=== PATIENT | male | born 1950 | race Caucasian/White ===

== ENCOUNTER 2021-08-08 06:33 | Inpatient (IN) ==
[2021-08-08] MEDS: *HR* Heparin 5,000 UNIT/ML VIAL SQ SCH ×2 (06:16→14:30)
[2021-08-08] MEDS: Insulin LISPRO 300 UNITS/3 ML VIAL SUBQ SCH ×3 (06:16→16:59)
[2021-08-08 06:22] LABS: Basophils % 0.2 %; Hematocrit 43.9 % (37.5-50.1); Hemoglobin 13.7 g/dL (12.9-16.9); Immature Granulocytes % 0.4 % (0-4); Lymphocytes # 0.3 K/mcL (0.6-4.6); Lymphocytes % 5.8 %; Mean Corpuscular HGB Conc 31.2 g/dL (31.6-35.5); Mean Corpuscular Hemoglobin 27.6 pg (28.0-33.3); Mean Corpuscular Volume 88.3 fL (83.0-100.0); Mean Platelet Volume 9.3 fL (9.4-12.4); Monocytes # 0.1 K/mcL (0.0-1.3); Monocytes % 1.3 %; Neutrophils # 4.3 K/mcL (1.6-8.9); Platelet Count 228 K/mcL (140-400); Red Blood Count 4.97 M/mcL (4.19-5.50); Red Cell Distribution Width 14.8 % (11.5-14.5); Segmented Neutrophils % 92.3 %; White Blood Count 4.6 K/mcL (4.3-11.1)
[2021-08-08 06:29] LABS: INR 1.9
[~2021-08-08 06:33] MED LIST: *HR* Dextrose 50 % in Water (Syg) 50 ML SYRINGE IVP PRN; *HR* Promethazine 25 MG/ML VIAL IM PRN; Azithromycin 500 MG in 0.9 % Sodium Chloride 250 ML IVPB SCH; D5% in Water 1,000 ML IVC PRN; Dextrose Gel 15 GM/37.5 ML TUBE PO PRN; Ipratropium/Albuterol Neb 3 ML IH PRN; Melatonin 3 MG TABLET PO PRN; Naloxone 0.4 MG/ML INJ IVP PRN; Ondansetron 4 MG/2 ML VIAL IVP PRN
[2021-08-08 06:37] LABS: Lactate Dehydrogenase 131 Units/L (140-271); Total Protein 8.7 g/dL (6.4-8.9)
[2021-08-08 06:39] LABS: BUN/Creatinine Ratio 18 (6-26); Blood Urea Nitrogen 24 mg/dL (8-23); Calcium 9.6 mg/dL (8.6-10.3); Carbon Dioxide 30 mEq/L (23-29); Chloride 98 mEq/L (98-107); Glucose 146 mg/dL (70-105); Osmolality,Calculated 289 (280-300); Potassium 4.4 mEq/L (3.5-5.1); Sodium 136 mEq/L (136-145); eGFR For African Americans > 60 (> 60); eGFR For Non-African Americans 52 (> 60)
[2021-08-08] MEDS ORDERED: Perflutren Lipid Microsphere 1.3 ML in 0.9 % Sodium Chloride 8.7 ML IVP PRN (07:23)
[2021-08-08] MEDS: Ipratropium/Albuterol Neb 3 ML IH SCH ×3 (07:46→15:41)
[2021-08-08] MEDS ORDERED: MethylPREDNISolone 40 MG/ML VIAL IVP SCH (08:00)
[2021-08-08] MEDS ORDERED: Furosemide 40 MG/4 ML VIAL IVP SCH (09:00)
[2021-08-08] MEDS ORDERED: Ondansetron 4 MG/2 ML VIAL IVP PRN (12:31)
[2021-08-08] MEDS ORDERED: Nitroglycerin 0.4 MG TAB.SUBL SL PRN (12:31)
[2021-08-08] MEDS ORDERED: *HR* FentaNYL (PF) 100 MCG/2 ML VIAL IVP PRN (12:31)
[2021-08-08] MEDS ORDERED: Albuterol 2.5 MG/3 ML NEBULIZER IH PRN (12:31)
[2021-08-08] MEDS ORDERED: Naloxone 0.4 MG/ML INJ IVP PRN (12:31)
[2021-08-08] MEDS ORDERED: atenoloL 50 MG TABLET PO SCH (12:45)
[2021-08-08] MEDS ORDERED: Gabapentin 300 MG CAPSULE PO SCH (15:00)
[2021-08-08 15:21] LABS: RBC,Pleural Fluid < 2000 RBC/mcL
[2021-08-08 15:25] LABS: Total Protein,Pleural Fluid 5.6 g/dL
[2021-08-08] MEDS ORDERED: Nicotine 21 MG PATCH.TD24 TD SCH (15:30)
[2021-08-08] MEDS ORDERED: Piperacillin/Tazobactam 3.375 GM in 0.9 % Sodium Chloride Mini Bag 100 ML IVPB SCH (16:00)
[2021-08-08 16:14] LABS: Appearance of Pleural Fl Clear (Clear)
[2021-08-08 16:40] VITALS: BP 117/66; PULSE 94; TEMP 98.3; O2SAT 93
[2021-08-08] MEDS ORDERED: *HR* Succinylcholine 200 MG/10 ML VIAL IVP ONE (17:42)
[2021-08-08] MEDS ORDERED: Lidocaine -MPF 4% 5 ML AMPUL TP ONE (17:42)
[2021-08-08] MEDS ORDERED: *HR* Labetalol 20 MG/4 ML SYRINGE IVP ONE (17:42)
[2021-08-08] MEDS ORDERED: *HR* Phenylephrine 10 MG/ML VIAL IVC ONE (17:42)
[2021-08-08] MEDS ORDERED: *HR* Propofol 200 MG/20 ML VIAL IVP ONE (17:42)
[2021-08-08] MEDS ORDERED: Lidocaine -MPF 2% 5 ML VIAL SQ ONE (17:42)
[2021-08-08] MEDS ORDERED: traZODone 50 MG TABLET PO SCH (21:00)
[2021-08-08] MEDS ORDERED: Insulin DETEMIR 100 UNIT/ML X5UNITS SUBQ SCH (21:00)
[2021-08-08] MEDS ORDERED: Budesonide/Formoterol 80/4.5 1 PUFF INH IH SCH (22:00)
[2021-08-08 23:58] LABS: Appearance of Body Fluid Slightly Hazy (Clear)
[2021-08-08 23:59] LABS: Volume of Body Fluid 20 mL
[2021-08-09] MEDS ORDERED: MethylPREDNISolone 40 MG/ML VIAL IVP SCH (09:00)
[2021-08-09] MEDS ORDERED: *HR* Rivaroxaban 10 MG TABLET PO SCH (09:00)
[2021-08-09] MEDS ORDERED: Aspirin 81 MG TAB.CHEW PO SCH (09:00)
[2021-08-09] MEDS ORDERED: amLODIPine 5 MG TABLET PO SCH (09:00)
[2021-08-10 22:22] LABS: Fluid Source for Triglycerides PLEURAL FLUID
[2021-08-11 06:33] LABS: Fluid Source for Cholesterol PLEURAL FLUID
[2021-08-12 10:24] LABS: Triglycerides,Body Fluid 14 mg/dL
[2021-08-12 10:33] LABS: Cholesterol,Body Fluid 39 mg/dL
== END 2021-08-08 17:43 | disposition left against medical advice (07) | DRG 291 ==
LOC: 2ANU
PROVIDERS: ADMIT Internal Medicine; ATTEND Internal Medicine

== ENCOUNTER 2022-03-08 16:18 | Inpatient (IN) ==
[2022-03-08] MEDS ORDERED: Ondansetron ODT 4 MG TAB.RAPDIS SL PRN (19:15)
[2022-03-08] MEDS ORDERED: Naloxone 0.4 MG/ML INJ IVP PRN (19:15)
[2022-03-08] MEDS ORDERED: Melatonin 3 MG TABLET PO PRN (19:15)
[2022-03-08] MEDS ORDERED: Nicotine 14 MG PATCH.TD24 TD SCH ×2 (20:30→23:00)
[2022-03-08] MEDS: traZODone 50 MG TABLET PO SCH (20:52)
[2022-03-08] MEDS: Gabapentin 300 MG CAPSULE PO SCH (20:52)
[2022-03-08] MEDS ORDERED: Dextrose Gel 15 GM/37.5 ML TUBE PO PRN ×2 (21:15)
[2022-03-08] MEDS ORDERED: D5% in Water 1,000 ML IVC PRN (21:15)
[2022-03-08] MEDS ORDERED: *HR* Dextrose 50 % in Water (Syg) 50 ML SYRINGE IVP PRN (21:15)
[2022-03-08] MEDS ORDERED: Albuterol 2.5 MG/3 ML NEBULIZER IH PRN (21:31)
[2022-03-08] MEDS ORDERED: Vancomycin 1,250 MG/262.5 ML IV.SOLN IVPB ONE (22:00)
[2022-03-08] MEDS: Insulin LISPRO 300 UNITS/3 ML VIAL SUBQ SCH (22:50)
[2022-03-08] MEDS ORDERED: Perflutren Lipid Microsphere 1.3 ML in 0.9 % Sodium Chloride 8.7 ML IVP PRN (23:37)
[2022-03-09] MEDS: Insulin LISPRO 300 UNITS/3 ML VIAL SUBQ SCH ×5 (01:16→20:51)
[2022-03-09 01:43] LABS: VBG HCO3 26 mEq/L (21-27); VBG PCO2 47 mmHg (41-51); VBG PH 7.36 pH Units (7.32-7.42); VBG PO2 91 mmHg (25-50)
[2022-03-09 01:48] LABS: Hemoglobin 12.1 g/dL (12.9-16.9)
[2022-03-09 01:49] LABS: Hematocrit 37.9 % (37.5-50.1); Immature Platelets 4.1 % (1.1-6.1); Mean Corpuscular HGB Conc 31.9 g/dL (31.6-35.5); Mean Corpuscular Hemoglobin 29.4 pg (28.0-33.3); Mean Platelet Volume 9.9 fL (9.4-12.4); Red Blood Count 4.12 M/mcL (4.19-5.50); Red Cell Distribution Width 15.3 % (11.5-14.5)
[2022-03-09 02:08] LABS: Lactate Dehydrogenase 134 Units/L (140-271); Total Protein 6.9 g/dL (6.4-8.9)
[2022-03-09 02:09] LABS: BUN/Creatinine Ratio 21 (6-26); Blood Urea Nitrogen 22 mg/dL (8-23); Calcium 8.7 mg/dL (8.6-10.3); Carbon Dioxide 26 mEq/L (23-29); Chloride 106 mEq/L (98-107); Glucose 104 mg/dL (70-105); INR 1.6; Osmolality,Calculated 290 (280-300); Potassium 3.8 mEq/L (3.5-5.1); Prothrombin Time 17.6 Seconds (9.4-12.1); Sodium 138 mEq/L (136-145); eGFR For African Americans > 60 (> 60); eGFR For Non-African Americans > 60 (> 60)
[2022-03-09 02:21] LABS: Thyroid Stimulating Hormone 0.29 mcIU/mL (0.340-5.600)
[2022-03-09 05:38] LABS: Troponin I 0.11 ng/mL (< 0.04)
[2022-03-09] MEDS ORDERED: Tiotropium 10 INH DOSE IH ONE (07:38)
[2022-03-09] MEDS: Tiotropium 10 INH DOSE IH SCH (07:53)
[2022-03-09] MEDS: atenoloL 50 MG TABLET PO SCH (08:34)
[2022-03-09] MEDS: amLODIPine 5 MG TABLET PO SCH (08:34)
[2022-03-09] MEDS: Gabapentin 300 MG CAPSULE PO SCH ×2 (08:34→20:48)
[2022-03-09] MEDS: Aspirin Enteric Coated 81 MG Tablet PO SCH (08:34)
[2022-03-09] MEDS ORDERED: Nicotine 2 MG GUM BC PRN (09:33)
[2022-03-09] MEDS: Vancomycin 1,250 MG/262.5 ML IV.SOLN IVPB SCH ×2 (11:00→13:02)
[2022-03-09] MEDS ORDERED: Piperacillin/Tazobactam 3.375 GM in 0.9 % Sodium Chloride Mini Bag 100 ML IVPB SCH ×2 (16:00→21:00)
[2022-03-09 16:54] LABS: Total Protein,Pleural Fluid 5.8 g/dL
[2022-03-09] MEDS ORDERED: *HR* Rivaroxaban 10 MG TABLET PO SCH (17:00)
[2022-03-09 18:11] LABS: Appearance of Pleural Fl Clear (Clear)
[2022-03-09 18:14] LABS: RBC,Pleural Fluid < 2000 RBC/mcL
[2022-03-09] MEDS ORDERED: Ipratropium/Albuterol Neb 3 ML IH PRN (18:27)
[2022-03-09 19:48] LABS: Basophils,Pleural Fluid 0 %; Eosinophils,Pleural Fluid 0 %; Monocytes,Pleural Fluid 0 %
[2022-03-09] MEDS: traZODone 50 MG TABLET PO SCH (20:47)
[2022-03-09] MEDS: Piperacillin/Tazobactam 3.375 GM in 0.9 % Sodium Chloride Mini Bag 100 ML IVPB SCH (20:49)
[2022-03-09] MEDS ORDERED: Nicotine 14 MG PATCH.TD24 TD SCH (21:00)
[2022-03-09] MEDS ORDERED: Insulin LISPRO 300 UNITS/3 ML VIAL SUBQ SCH (21:00)
[2022-03-10 01:15] LABS: Basophils % 0.5 %; Eosinophils # 0.1 K/mcL (0.0-0.6); Hematocrit 36.1 % (37.5-50.1); Hemoglobin 11.5 g/dL (12.9-16.9); Immature Granulocytes % 0.2 % (0-4); Immature Platelets 4.3 % (1.1-6.1); Lymphocytes # 0.7 K/mcL (0.6-4.6); Lymphocytes % 15.2 %; Mean Corpuscular HGB Conc 31.9 g/dL (31.6-35.5); Mean Corpuscular Hemoglobin 29.2 pg (28.0-33.3); Mean Corpuscular Volume 91.6 fL (83.0-100.0); Monocytes # 0.5 K/mcL (0.0-1.3); Monocytes % 12.2 %; Neutrophils # 3.1 K/mcL (1.6-8.9); Platelet Count 138 K/mcL (140-400); Red Blood Count 3.94 M/mcL (4.19-5.50); Segmented Neutrophils % 69.9 %; White Blood Count 4.4 K/mcL (4.3-11.1)
[2022-03-10 01:34] LABS: BUN/Creatinine Ratio 26 (6-26); Blood Urea Nitrogen 23 mg/dL (8-23); Calcium 8.5 mg/dL (8.6-10.3); Carbon Dioxide 28 mEq/L (23-29); Chloride 106 mEq/L (98-107); Glucose 95 mg/dL (70-105); Magnesium 1.8 mg/dL (1.6-2.6); Osmolality,Calculated 289 (280-300); Potassium 3.9 mEq/L (3.5-5.1); Sodium 138 mEq/L (136-145); eGFR For African Americans > 60 (> 60); eGFR For Non-African Americans > 60 (> 60)
[2022-03-10 01:48] LABS: Thyroid Stimulating Hormone 0.584 mcIU/mL (0.340-5.600)
[2022-03-10 02:26] LABS: Estimated Average Glucose 117 mg/dl; Hemoglobin A1C 5.7 %
[2022-03-10] MEDS: Piperacillin/Tazobactam 3.375 GM in 0.9 % Sodium Chloride Mini Bag 100 ML IVPB SCH ×2 (04:16→12:24)
[2022-03-10] MEDS: Insulin LISPRO 300 UNITS/3 ML VIAL SUBQ SCH ×2 (08:49→12:24)
[2022-03-10] MEDS: Aspirin Enteric Coated 81 MG Tablet PO SCH (09:01)
[2022-03-10] MEDS: amLODIPine 5 MG TABLET PO SCH (09:01)
[2022-03-10] MEDS: Gabapentin 300 MG CAPSULE PO SCH (09:02)
[2022-03-10] MEDS: atenoloL 50 MG TABLET PO SCH (09:02)
[2022-03-10] MEDS: Tiotropium 10 INH DOSE IH SCH (10:24)
[2022-03-10 10:35] VITALS: BP 111/77; PULSE 89; TEMP 97.4
[2022-03-10 14:43] VITALS: O2SAT 96
== END 2022-03-10 16:29 | disposition home health service (06) | DRG 871 ==
LOC: 2NNU → SUATTDRO 20:18 → 3ANU 03-09 00:08
PROVIDERS: ADMIT Student in an Organized Health Care Education/Training Program; ATTEND Pharmacist